=== PATIENT | male | born 1990 | race African-American/Black ===

== ENCOUNTER 2022-10-26 17:00 | Emergency (ER) | payer BC, SELFPAY ==
--- NOTE | 2022-10-26 18:29 | ED.WOUNDLAC ---
HPI - Wound/Laceration General Stated Complaint: rt thumb laceration Time Seen by Provider: 10/26/22 19:06 Source: patient and RN notes reviewed Mode of arrival: ambulatory Limitations: no limitations History of Present Illness HPI narrative: 32-year-old male presents concern for laceration to the tip of the 1st digit of his right hand. Reports this afternoon he cut his finger on glass on it. Reports a cleaning with peroxide and bandaged. He is up-to-date his tetanus vaccination Related Data Home Medications Medication Instructions Recorded Confirmed No Home Medications 10/26/22 10/26/22 Allergies Allergy/AdvReac Type Severity Reaction Status Date / Time No Known Allergies Allergy Mild Verified 10/26/22 18:51 Review of Systems Review of Systems: CONSTITUTIONAL: Denies malaise, chills, sweats, or fever. SKIN: Reports laceration to the 1st digit of the right hand MUSCULOSKELETAL: Denies muscle skeletal pain NEUROLOGIC: Denies numbness, weakness All systems reviewed & are unremarkable except as noted in HPI and below PMFSH Comments At time of signature, agree with nursing past medical, surgical, social and family history. There is no relevant family history pertinent to the presenting complaint Exam Narrative: GENERAL: Well-appearing, well-nourished, and in no acute distress. HEAD: Normocephalic, atraumatic. EYES: PERRLA, conjunctivae clear ENT: Mucous membranes moist. NECK: Supple. No lymphadenopathy CHEST: Clear to auscultation. No respiratory distress. HEART: Regular rate and rhythm. SKIN: Warm, dry. 2 cm v-shaped laceration noted to the lateral edge of the 1st digit of the right hand, not involving the nail bed. Wound is well-approximated, not bleeding, not able to separate wound edges NEURO: Alert and oriented x3. PSYCH: Normal mood and affect Course Course Emergency Course: Discussed closure options with patient, which is currently well-approximated, not bleeding, unable to open wound edges manually. Discussed benefits and risks of sutures versus glue. To share decision making Dermabond will be used to keep the wound closed Patient is aware of diagnosis, understands and agrees to treatment plan. Anticipatory guidance given. Patient agrees to follow-up as directed and is aware of reasons to seek care at the emergency department. Portions of this record may have been created with voice recognition software Level of Care: Express Care Visit Vital Signs Vital signs: Reviewed. Procedures Laceration Laceration 1: Date: 10/26/22 Time: 19:14 Site: hand Side (If applicable): right Size (cm): 2 Description: irregular Depth: simple, single layer Pre-repair: wound explored ====== Skin Level ====== Skin layer closed with: dermabond ====== Subcutaneous Layer ====== ====== Muscle Layer ====== ====== Tendon Layer ====== MDM - Wound/Laceration MDM Narrative Medical decision making narrative: Exam findings show no acute concerns or changes; patient is non-toxic appearing and is in no distress. Patient is appropriate for outpatient treatment and follow-up. Differential Diagnosis Differential diagnosis: Likely laceration, abrasion and avulsion of skin Critical Care Time Critical Care Time Critical Care Time: No Discharge Plan Discharge Clinical Impression: Laceration Patient Disposition: Home, Self-Care Condition: Stable Instructions: Laceration (ED) Additional Instructions: Skin adhesive care: -adhesive works like a bandage; do not use antibiotic ointment as it can break down the adhesive -You can shower while the adhesive is on your skin, but do not take a bath or soak or scrub the area for 7-10 days. Dry your skin by patting it gently with a towel. -The adhesive will peel off on its own; usually by 5-10days. If after 10 days, you still have adhesive on you, you can use antibiotic ointment or phani
[2022-10-26 18:59] VITALS: BP 137/78; PULSE 89; RESP 18; TEMP 36.6; O2SAT 100
== END 2022-10-26 19:36 | disposition home or self-care (01) ==
PROVIDERS: Emergency Provider Nurse Practitioner; PCP Family Medicine
DX: S61.011A Laceration without foreign body of right thumb without damage to nail, initial encounter (principal); W25.XXXA Contact with sharp glass, initial encounter
CPT/HCPCS: 12001; 99212; G0463